=== PATIENT | male | born 1940 ===

== ENCOUNTER 2018-05-12 12:25 | Day surgery (SDC) | payer MEDICARE ==
[2018-05-07 10:45] VITALS: BMI 35.2
[2018-05-12 13:06] LABS: BASO # 0.03 K/mm3 (0.0-2.0); BASO % 0.4 % (0.0-3.0); EOS # 0.1 (0.0-0.7); EOS % 1.7 % (1.5-5.0); GRAN # 5.05 (1.4-6.5); GRAN % 70.4 % (50.0-68.0); HEMOGLOBIN 13.3 g/dL (14.0-18.0); LYMPH # 1.1 (1.2-3.4); LYMPH % 15.8 % (22.0-35.0); MEAN CELL VOLUME 88.2 fl (80.0-105.0); MEAN CORPUSCULAR HEMOGLOBIN 29.7 pg (25.0-35.0); MEAN CORPUSCULAR HGB CONC 33.7 g/dl (31.0-37.0); MEAN PLATELET VOLUME 11.9 fl (7.0-11.0); MONO # 0.8 (0.1-0.6); MONO % 11.7 % (1.0-6.0); RBC 4.48 10^6/uL (3.5-6.1); RED CELL DISTRIBUTION WIDTH 13.4 % (11.5-14.5); WHITE BLOOD COUNT 7.2 10^3/ul (4.5-11.0)
[2018-05-12 13:15] LABS: BLOOD UREA NITROGEN 22 mg/dL (7-21); CALCIUM 9.2 mg/dL (8.4-10.5); GFR NON-AFRICAN AMERICAN 54; INR 1.01; PARTIAL THROMBOPLASTIN TIME 30.5 Seconds (25.1-36.5); PROTHROMBIN TIME 11.6 SECONDS (9.4-12.5)
[2018-05-12 13:25] VITALS: TEMP 97.6
[2018-05-12] MEDS ORDERED: Lidocaine 2% Inj (20ml) ONE (13:57)
[2018-05-12] MEDS ORDERED: Iodixanol 320 MG/ML 100 ML BOTTLE IV ONE (13:58)
[2018-05-12] MEDS ORDERED: Nitroglycerin 50mg in D5W 50 MG/250 ML BOTTLE IV ONE (13:58)
[2018-05-12] MEDS ORDERED: Iodixanol 320 MG/ML 200 ML BOTTLE IV ONE (13:58)
[2018-05-12] MEDS ORDERED: Midazolam 2 MG/2 ML VIAL ONE ×2 (14:09→14:35)
[2018-05-12] MEDS ORDERED: Oxycodone/Acetaminophen 5/325 mg Tab PO PRN (15:08)
[2018-05-12] MEDS ORDERED: Sodium Chloride 0.45% 1,000 ML IV SCH (15:15)
--- NOTE | 2018-05-12 15:32 | VASCULAR ---
Date of service: 05/12/2018 PROCEDURE: 1. Right iliac venogram 2. IVC gram 3. 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 Post DVT changes in the right lower extremity on ultrasound. 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 COMPARISON: TECHNIQUE: The relative risks and indications of the procedure explained the patient's and consent obtained. The patient placed supine on the arteriogram table in the right groin prepped and draped usual sterile fashion. Conscious sedation monitoring were provided throughout the procedure by a nurse. Under ultrasound guidance, the right common femoral vein was punctured with a micropuncture set. A 5 Nepali sheath was placed. A right iliac venogram was performed. Catheter was advanced centrally and IVC gram performed. The IVC bifurcation was carefully marked. A 0.035 support wire was placed centrally. A 10 Nepali sheath was placed at the puncture site. The junction of the right external and common iliac vein was dilated with 12 and 14 mm balloons. Next a 16 mm x 6 cm Wallstent was placed at the junction of the right common and external iliac veins. The stent was dilated with a 14 mm balloon. Completion venograms were obtained. The sheath was removed hemostasis obtained. The patient tolerated the procedure well. FINDINGS: There is a tapered stenosis at the junction of the right common and external iliac veins. No thrombus is seen. There is a filter well positioned in the IVC. The IVC is otherwise normal in appearance. The right iliac venous stenosis was successfully dilated and wall stent placed. Brisk flow is noted. 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 Successful angioplasty and stent placement at the junction of the right common and external iliac veins Normal infrarenal IVC and IVC filter.
[2018-05-12 16:23] VITALS: RESP 20; O2SAT 95
[2018-05-12 16:50] VITALS: BP 145/94; PULSE 59
== END 2018-05-12 18:30 | disposition home or self-care (01) ==
LOC: SDS 12:25
PROVIDERS: ATTEND Radiology Vascular & Interventional Radiology
DX: I87.1 Compression of vein (principal); Z86.718 Personal history of other venous thrombosis and embolism
CPT/HCPCS: 36005; 36415; 37238; 75820; 80048; 85025; 85610; 85730; 99152; 99153; C1725 ×2; C1769 ×3; C1876; C1887; C1894 ×2; J0690; J1644; J2250; J2405; J3010; J7030; Q9966; Q9967